=== PATIENT | male | born 1990 | race Caucasian/White ===

== ENCOUNTER 2016-10-09 01:32 | Emergency (ER) | payer OTHER ==
[~2016-10-09] VITALS: Ht 198.1 cm; Wt 72.7 kg
[~2016-10-09 01:32] MED LIST: ZOFRAN 4MG T4 MG/TAB PO
[2016-10-09 01:35] VITALS: TEMP 97.9
[2016-10-09] MEDS ORDERED: PRIL40 PO (01:39)
[2016-10-09] MEDS ORDERED: VALIUM 5MG T5 MG/TAB PO (02:43)
[2016-10-09] MEDS ORDERED: NORCO 325 MG-51 TAB PO (02:43)
[2016-10-09 02:51] VITALS: BP 135/73; PULSE 71
== END 2016-10-09 02:56 | disposition home or self-care (01) ==
LOC: COL.ER 01:32
DX: M54.12 Radiculopathy, cervical region (principal)
CPT/HCPCS: J1100; J3360

== ENCOUNTER → 2017-08-22 | Outpatient (CLI) | payer OTHER ==
[~2017-08-22] MED LIST changes: +NORCO 325 MG-51 TAB PO; +PRIL40 PO; +VALIUM 5MG T5 MG/TAB PO
== END ==
LOC: COL.CARD 15:01
DX: R00.2 Palpitations (principal)

== ENCOUNTER 2021-07-25 19:29 | Emergency (ER) | payer BC ==
[~2021-07-25] VITALS: Ht 198.1 cm; Wt 85.5 kg
[2021-07-25 19:37] VITALS: TEMP 97.2
[2021-07-25 20:18] LABS: BASO % 0.4 % (0.0-2.0); EOS # 0.1 K/mm3 (0.0-0.7); GRAN # 3.7 K/mm3 (1.4-6.5); GRAN % 67.1 % (42.2-75.2); HEMATOCRIT 41.7 % (42.0-52.0); HEMOGLOBIN 14.6 g/dl (13.5-18.0); LYMPH # 1.3 K/mm3 (1.2-3.4); LYMPH % 24.2 % (20.0-51.0); MEAN CELL VOLUME 87 fl (80.0-100.0); MEAN CORPUSCULAR HEMOGLOBIN 31 pg (27-31); MEAN CORPUSCULAR HGB CONC 35 g/dl (33.0-37.0); MEAN PLATELET VOLUME 10.6 fl (7.4-10.4); MONO # 0.3 K/mm3 (0.1-0.6); MONO % 6.1 % (1.7-9.3); PLATELET COUNT 200 K/mm3 (130-400); RED BLOOD COUNT 4.78 M/mm3 (4.20-5.60); REDCELL DISTRIBUTION WIDTH-CV 12.7 % (11.5-14.5)
[2021-07-25 20:23] LABS: COLLECTION METHOD CLEAN CATCH
[2021-07-25 20:38] LABS: PH 7 (5-8); SQUAMOUS EPITHELIAL None Seen /hpf (0-10); URINE APPEARANCE Clear (CLEAR/HAZY); URINE BACTERIA None Seen /hpf (NONE SEEN); URINE BILIRUBIN Negative (NEGATIVE); URINE BLOOD Negative (NEGATIVE); URINE COLOR Straw (YELLOW); URINE GLUCOSE Negative (NEGATIVE); URINE KETONE Negative (NEGATIVE); URINE LEUKOCYTE ESTERASE Negative (NEGATIVE); URINE NITRATE Negative (NEGATIVE); URINE PROTEIN(semi-quant) Negative (NEGATIVE); URINE RBC None Seen /hpf (0-2); URINE UROBILINOGEN Negative (NEGATIVE)
[2021-07-25 20:45] LABS: ALANINE AMINOTRANSFERASE 29 U/L (0-55); ALBUMIN 4.3 gm/dL (3.5-5.0); ALKALINE PHOSPHATASE 76 U/L (40-150); ANION GAP 10 mmol/L (7-16); AST,SGOT 25 U/L (5-34); BILIRUBIN,TOTAL 0.4 mg/dL (0.2-1.2); BLOOD UREA NITROGEN 13 mg/dL (9-21); CALCIUM 8.9 mg/dL (8.4-10.2); CARBON DIOXIDE 22 mmol/L (22-29); CHLORIDE 109 mmol/L (98-107); CREATININE, serum 1.14 mg/dL (0.72-1.25); GLUCOSE 121 mg/dL (70-99); POTASSIUM 4.9 mmol/L (3.5-4.5); SODIUM 141 mmol/L (136-145); TOTAL PROTEIN 7.2 gm/dL (6.2-8.1)
[2021-07-25 20:47] LABS: ACETAMINOPHEN < 1.0 ug/mL (10-30); ALCOHOL(ethanol),MEDICAL < 10 mg/dL (0-10); SALICYLATE < 5.0 mg/dL (15.0-30.0)
[2021-07-25 20:48] LABS: TRICYCLIC ANTIDEPRESS URINE NEGATIVE
[2021-07-25 21:05] LABS: TSH w REFLEX 1.082 uIU/mL (0.350-4.940)
[2021-07-25 22:15] VITALS: BP 132/80; PULSE 76
== END 2021-07-25 22:17 | disposition home or self-care (01) ==
LOC: COL.ER 19:29
PROVIDERS: Nurse Practitioner
DX: R45.851 Suicidal ideations (principal); F32.A Depression, unspecified; Z20.822 Contact with and (suspected) exposure to COVID-19